=== PATIENT | female | born 1995 | race Caucasian/White ===

== ENCOUNTER → 2018-01-18 | Outpatient (CLI) | payer BC ==
[~2018-01-18] MED LIST: AMPH20TA18 PO; BUPR-124 PO; BUPR-128 PO; BUSP15TA69 PO; CETI-176 PO; CLON-331 PO; DEXT5TAB10 PO; HYDR-2963 PO; INSU100C14 SQ; INSU100I8 SQ; INSU100V28 SQ; KET10 PO; LANI SUBQ; METH36 PO; NORG1TAB74 PO; OMEG-23 PO; SPIR100T30 PO; SUMA50TA35 PO; TOPI-120 PO; TRAM-627 PO; VITA0.4T10 PO; [UNRECOGNIZED DRUG - OTHER]
[2018-01-18 11:50] LABS: PLATELET COUNT, AUTOMATED 239 K/uL (150-450)
== END ==
LOC: LAB 11:24
PROVIDERS: ATTEND Emergency Medicine
DX: E10.618 Type 1 diabetes mellitus with other diabetic arthropathy (principal)
CPT/HCPCS: 36415; 82040; 82043; 82247; 82306; 82310; 82374; 82435; 82565; 82607; 82728; 82947; 83036; 83540; 83550; 84075; 84132; 84155; 84295; 84443; 84450; 84460; 84520; 85025

== ENCOUNTER → 2018-07-05 | Outpatient (CLI) | payer BC ==
[~2018-07-05] MED LIST changes: +PREN1CAP PO
== END ==
LOC: LAB 16:26
PROVIDERS: ATTEND Emergency Medicine
DX: E10.9 Type 1 diabetes mellitus without complications (principal)
CPT/HCPCS: 36415; 83036